=== PATIENT | female | born 1975 | race Two or more races ===

== ENCOUNTER 2020-01-27 17:18 | Emergency (ER) | payer MEDICAID ==
[~2020-01-27] VITALS: Ht 152.4 cm; Wt 65.8 kg
[2020-01-27] MEDS ORDERED: TETANUS-DIPTH-ACEL PERTUSSIS 0.5ML SYR Tdap IM ONE (20:45)
[2020-01-27] MEDS ORDERED: LIDOCAINE 1% HCL (LOCAL ANESTH.) INJ 20ML MDV IJ ONE (20:45)
[2020-01-27 20:46] VITALS: BP 115/75
== END 2020-01-27 21:59 | disposition home or self-care (01) ==
LOC: ER 17:22
DX: S61.412A Laceration without foreign body of left hand, initial encounter (principal); S40.021A Contusion of right upper arm, initial encounter; M79.652 Pain in left thigh; W11.XXXA Fall on and from ladder, initial encounter; Y93.89 Activity, other specified; Y92.89 Other specified places as the place of occurrence of the external cause; Y99.8 Other external cause status
CPT/HCPCS: 12002; 90471; 90715; 99283; J2001

== ENCOUNTER 2023-05-14 14:36 | Emergency (ER) | payer MEDICAID ==
[~2023-05-14] VITALS: Ht 152.4 cm; Wt 71.2 kg
[2023-05-14] MEDS ORDERED: ALBUAER3 IN ×3 (19:40→19:59)
[2023-05-14] MEDS ORDERED: AZIT-43 PO ×3 (19:40→19:59)
[2023-05-14] MEDS ORDERED: PRED20TA2 PO ×3 (19:40→19:59)
[2023-05-14] MEDS ORDERED: BENZ100C97 PO ×3 (19:40→19:59)
[2023-05-14 19:59] VITALS: BP 128/59; PULSE 72; RESP 17; TEMP 98.6; O2SAT 96
== END 2023-05-14 20:01 | disposition home or self-care (01) ==
LOC: ER 14:36
DX: J20.9 Acute bronchitis, unspecified (principal)
CPT/HCPCS: 71045